=== PATIENT | female | born 1950 | race African-American/Black ===

== ENCOUNTER 2016-04-24 11:04 | Inpatient (IN) | payer OTHER ==
[~2016-04-24] VITALS: Ht 170.2 cm; Wt 104.8 kg
[2016-04-24] MEDS ORDERED: IV NORMAL SALINE 1000ML BAG 1,000 ML IV SCH (11:49)
[2016-04-24] MEDS ORDERED: FENTANYL PF 100 MCG/2 ML VIAL. IV PRN ×2 (12:00→14:00)
[2016-04-24] MEDS ORDERED: ONDANSETRON PF 4 MG/2 ML VIAL. IV ONE (12:00)
[2016-04-24] MEDS ORDERED: DIAZEPAM 10 MG/2 ML DISP.SYRIN. IV ONE (12:00)
[2016-04-24] MEDS ORDERED: ASPIRIN 81 MG TAB.CHEW PO ONE (12:00)
[2016-04-24 12:03] LABS: BASO % 1 % (0-3); EOS % 3 % (0-3); HEMATOCRIT 39.8 % (36.0-47.0); HEMOGLOBIN 13.6 g/dL (12.0-15.5); LYMPH # 3.3 x10^3/uL (1.0-4.8); LYMPH % 50 % (24-48); MEAN CORPUSCULAR HEMOGLOBIN 29 pg (25-35); MEAN CORPUSCULAR HGB CONC 34 g/dL (31-37); MEAN CORPUSCULAR VOLUME 84 fL (79-100); MONO % 7 % (0-9); NEUT % 40 % (31-73); PLATELET COUNT 170 x10^3/uL (140-400); RED BLOOD COUNT 4.73 x10^6/uL (3.50-5.40); RED CELL DISTRIBUTION WIDTH 13.9 % (11.5-14.5); WHITE BLOOD COUNT 6.7 x10^3/uL (4.0-11.0)
[2016-04-24 12:13] LABS: CALCIUM 9.7 mg/dL (8.5-10.1); CREATININE 0.8 mg/dL (0.6-1.0); GFR 87.4
--- NOTE | 2016-04-24 12:15 | EKG ---
[facility] [address] [place] [address] Test Date: 2016-04-24 Test Time: 11:14:22 Pat Name: BHAVNA MICHAEL Department: Room: Gender: Female Cook House Supervisor: : 1950 Requested By: JOSE ONEILL Order Number: [id number] Reading MD: Rashawn Rodriguez Measurements Intervals Ponder Rate: 69 P: 0 DC: 182 QRS: -22 QRSD: 98 T: 34 QT: 380 QTc: 409 Interpretive Statements SINUS RHYTHM Electronically Signed On 04-27-2016 10:20:02 ROOMING HOUSE INSPECTOR by Rashawn Rodriguez
[2016-04-24 12:19] LABS: ALBUMIN 3.8 g/dL (3.4-5.0); DIRECT BILIRUBIN 0.1 mg/dL (0.0-0.2); MAGNESIUM 1.8 mg/dL (1.8-2.4); TOTAL BILIRUBIN 0.8 mg/dL (0.2-1.0); TOTAL PROTEIN 7.9 g/dL (6.4-8.2)
[2016-04-24 12:26] LABS: CKMB INDEX 0.9 % (0-4); CKMB MASS 2.6 ng/mL (0.0-3.6)
--- NOTE | 2016-04-24 12:48 | RAD ---
Indication: Left shoulder pain. Time of exam 12 0 8:00 PM The glenohumeral and acromial clavicular alignment are normal. The acromiohumeral space is normal. There are hypertrophic degenerative changes of the AC joint. No fracture or dislocation is seen. Impression: No acute bony abnormality is detected.
--- NOTE | 2016-04-24 12:49 | RAD ---
Indication: Left-sided chest pain. Time of exam 1207 appear Comparison is made with prior chest from 05/26/2012. FINDINGS: The heart size is normal. The lungs are clear. No pleural effusion or pneumothorax is identified. The pulmonary vascularity is normal. IMPRESSION: No acute abnormality detected.
--- NOTE | 2016-04-24 13:36 | PHYS DOC ---
Past Medical History Past Medical History: Diabetes-Type II, Gallstones, Hypertension Past Surgical History: Other Additional Past Surgical Histo: d&c Alcohol Use: None Drug Use: None Adult General Chief Complaint Chief Complaint: CHEST PAIN HPI HPI Patient is a 66 year old female who presents with complaint of left-sided chest and shoulder pain. Patient states that she has had symptoms off and on for the past 2 weeks. Patient states that she has been having worsening pain in her left shoulder and states that the symptoms feel like muscle spasms. The patient also states that she has been having sharp pains in the middle of her chest. Patient has history of hypertension and diabetes mellitus type 2. Patient denies any known heart problems and states that she has not had any recent cardiac stress testing. Patient denies any fevers, nausea, or shortness of breath with her symptoms. Patient has been taking ibuprofen at home with no relief in symptoms. Review of Systems Review of Systems Constitutional: Denies fever or chills [] Eyes: Denies change in visual acuity, redness, or eye pain [] HENT: Denies nasal congestion or sore throat [] Respiratory: Denies cough or shortness of breath [] Cardiovascular: Chest pain, denies edema [] GI: Denies abdominal pain, nausea, vomiting, bloody stools or diarrhea [] : Denies dysuria or hematuria [] Musculoskeletal: Left shoulder pain [] Integument: Denies rash or skin lesions [] Neurologic: Denies headache, focal weakness or sensory changes [] Endocrine: Denies polyuria or polydipsia [] Current Medications Current Medications Current Medications Medications (Trade) Dose Ordered Sig/[facility] Start Time Stop Time Status Last Admin Dose Admin Aspirin (Children'S Aspirin) 324 mg 1X ONCE 04/24/16 12:00 04/24/16 12:01 DC 04/24/16 12:38 324 MG Diazepam (Valium) 5 mg 1X ONCE 04/24/16 12:00 04/24/16 12:01 DC 04/24/16 12:00 5 MG Fentanyl Citrate 50 mcg 50 mcg PRN Q15MIN PRN 04/24/16 12:00 04/25/16 11:59 Ondansetron HCl (Zofran) 4 mg 1X ONCE 04/24/16 12:00 04/24/16 12:01 DC 04/24/16 12:38 4 MG Sodium Chloride (Iv Sodium Chloride 0.9% 1000ml Bag) 1,000 ml @ 100 mls/hr Q10H 04/24/16 11:49 04/24/16 21:48 04/24/16 12:38 100 MLS/HR Allergies Allergies Allergies Coded Allergies Type Severity Reaction Last Updated Verified adhesive tape Allergy Unknown Rash 07/23/15 Yes lisinopril Adverse Reaction Intermediate BAD COUGH 07/23/15 Yes Physical Exam Physical Exam Constitutional: Alert, afebrile, appears in mild discomfort. [] HENT: Normocephalic, atraumatic, bilateral external ears normal, oropharynx moist, no oral exudates, nose normal. [] Eyes: PERRLA, EOMI, conjunctiva normal, no discharge. [] Neck: Normal range of motion, no tenderness, supple, no stridor. [] Cardiovascular:Heart rate regular rhythm, no murmur [] Lungs & Thorax: Bilateral breath sounds clear to auscultation [] Abdomen: Bowel sounds normal, soft, no tenderness, no masses, no pulsatile masses. [] Skin: Warm, dry, no erythema, no rash. [] Back: No tenderness, no CVA tenderness. [] Extremities: Left anterior and lateral shoulder tenderness to palpation, no cyanosis, no clubbing, ROM intact, no edema. [] Neurologic: Alert and oriented X 3, normal motor function, normal sensory function, no focal deficits noted. [] Current Patient Data Vital Signs Vital Signs Date Time Temp Pulse Resp B/P Pulse Ox O2 Delivery O2 Flow Rate FiO2 04/24/16 13:15 68 136/65 96 Room Air 04/24/16 12:46 18 04/24/16 11:05 97.7 97.7 Lab Values Laboratory Tests Test 04/24/16 11:20 White Blood Count 6.7x10^3/uL (4.0-11.0) Red Blood Count 4.73x10^6/uL (3.50-5.40) Hemoglobin 13.6g/dL (12.0-15.5) Hematocrit 39.8% (36.0-47.0) Mean Corpuscular Volume 84fL (79-100) Mean Corpuscular Hemoglobin 29pg (25-35) Mean Corpuscular Hemoglobin Concent 34g/dL (31-37) Red Cell Distribution Width 13.9% (11.5-14.5) Platelet Count 170x10^3/uL (140-400) Neutrophils (%) (Auto) 40% (31-73) Lymphocytes (%) (Auto) 50% (24-48) H Monocytes (%) (Auto) 7% (0-9) Eosinophils (%) (Auto) 3% (0-3) Basophils (%) (Auto) 1% (0-3) Neutrophils # (Auto) 2.7x10^3uL (1.8-7.7) Lymphocytes # (Auto) 3.3x10^3/uL (1.0-4.8) Monocytes # (Auto) 0.5x10^3/uL (0.0-1.1) Eosinophils # (Auto) 0.2x10^3/uL (0.0-0.7) Basophils # (Auto) 0.0x10^3/uL (0.0-0.2) Sodium Level 140mmol/L (136-145) Potassium Level 4.0mmol/L (3.5-5.1) Chloride Level 103mmol/L (98-107) Carbon Dioxide Level 29mmol/L (21-32) Anion Gap 8 (6-14) Blood Urea Nitrogen 17mg/dL (7-20) Creatinine 0.8mg/dL (0.6-1.0) Estimated GFR (Cockcroft-Gault) 87.4 Glucose Level 118mg/dL (70-99) H Calcium Level 9.7mg/dL (8.5-10.1) Magnesium Level 1.8mg/dL (1.8-2.4) Total Bilirubin 0.8mg/dL (0.2-1.0) Direct Bilirubin 0.1mg/dL (0.0-0.2) Aspartate Amino Transferase (AST) 37U/L (15-37) Alanine Aminotransferase (ALT) 47U/L (14-59) Alkaline Phosphatase 75U/L (46-116) Creatine Kinase 294U/L (26-192) H Creatine Kinase MB (Mass) 2.6ng/mL (0.0-3.6) Creatine Kinase MB Relative Index 0.9% (0-4) Troponin I Quantitative < 0.017ng/mL (0.000-0.055) QW-Rwl-W-Type Natriuretic Peptide 12pg/mL (0-124) Total Protein 7.9g/dL (6.4-8.2) Albumin 3.8g/dL (3.4-5.0) Thyroid Stimulating Hormone (TSH) 1.914uIU/mL (0.358-3.74) Laboratory Tests 04/24/16 11:20 Laboratory Tests 04/24/16 11:20 EKG EKG Interpreted by me: Heart rate 69, sinus rhythm, normal intervals, normal axis, no acute ST/T-wave abnormalities present [] Radiology/Procedures Radiology/Procedures [address] [address] IMAGING REPORT Signed PATIENT: BHAVNA MICHAEL ACCOUNT: [id number] : 1950 LOCATION: ER AGE: 66 SEX: F EXAM STATUS: PRE ER ORD. PHYSICIAN: JOSE ONEILL MD REASON: left-sided chest and shoulder pain PROCEDURE: SHOULDER 2+V LEFT Indication: Left shoulder pain. Time of exam 12 0 8:00 PM The glenohumeral and acromial clavicular alignment are normal. The acromiohumeral space is normal. There are hypertrophic degenerative changes of the AC joint. No fracture or dislocation is seen. Impression: No acute bony abnormality is detected. DICTATED and SIGNED BY: ALPHONSO SONG MD DATE: 04/24/16 1245 CC: JOSE ONEILL MD; NON,STAFF ~ [address] [address] IMAGING REPORT Signed PATIENT: BHAVNA MICHAEL ACCOUNT: [id number] : 1950 LOCATION: ER AGE: 66 SEX: F EXAM STATUS: PRE ER ORD. PHYSICIAN: JOSE ONEILL MD REASON: left-sided chest and shoulder pain PROCEDURE: PORTABLE CHEST 1V Indication: Left-sided chest pain. Time of exam 1207 appear Comparison is made with prior chest from 05/26/2012. FINDINGS: The heart size is normal. The lungs are clear. No pleural effusion or pneumothorax is identified. The pulmonary vascularity is normal. IMPRESSION: No acute abnormality detected. DICTATED and SIGNED BY: ALPHONSO SONG MD DATE: 04/24/16 1246 CC: JOSE ONEILL MD; NON,STAFF ~ [] Course & Med Decision Making Course & Med Decision Making Pertinent Labs and Imaging studies reviewed. (See chart for details) Patient was given IV Valium and oral aspirin in the emergency department. The patient states that her symptoms have mildly improved but are still present. Patient also states that she continues to have intermittent chest pains while in the emergency department. The patient will need admission to the hospital for rule out myocardial infarction. I spoke with Dr. Casas who accepted care patient in hospital. I also consult did [facility] cardiology and patient was initially evaluated in the emergency department with plans for stress test and echocardiogram in hospital. Dragon Disclaimer Dragon Disclaimer This electronic medical record was generated, in whole or in part, using a voice recognition dictation system. Departure Departure Impression: Primary Impression: Chest pain Additional Impressions: Type 2 diabetes mellitus Hypertension Disposition: ADMITTED INPATIENT Admitting Physician: Alisia Casas Condition: STABLE Referrals: PRICILA GARRIDO APRN (PCP) Problem Qualifiers Primary Impression: Chest pain Chest pain type: unspecified Qualified Code: R07.9 - Chest pain, unspecified Additional Impressions: Type 2 diabetes mellitus Diabetes mellitus complication status: with hyperglycemia Diabetes mellitus usp insulin use: unspecified usp insulin use status Qualified Code : E11.65 - Type 2 diabetes mellitus with hyperglycemia Hypertension Hypertension type: essential hypertension Qualified Code: I10 - Essential ( primary) hypertension JOSE ONEILL MD Apr 24, 2016 13:36
--- NOTE | 2016-04-24 13:57 | PDOC2 ---
HARVINDER CRAIG POST PRODUCTION ASSISTANT 04/24/16 1357: CARDIAC CONSULT DATE OF CONSULT Date of Consult DATE: 04/24/16 TIME: 13:44 REASON FOR CONSULT Reason for Consult: Chest pain REFERRING PHYSICIAN Referring Physician: Antwon SOURCE Source: Chart review, Patient HISTORY OF PRESENT ILLNESS HISTORY OF PRESENT ILLNESS This is a pleasant 66 yo female admitted for complains of chest pain. Reports that she has been having intermittent left chest pain in the last 2 weeks lasting only for a few minutes. In the last few days specifically this morning she started having more intense spasm like to her left chest and also mid chest pressure first one lasting about 30 minutes and the other one lasting about 15 minutes. This was not associated with nausea or vomiting nor heartburn but reports radiation to left shoulder with tingling to left and numbness to left hand. Could not tell me exactyl about diaphoresis but said she's sweaty a lot. She does get winded easily with walking but no SOA associated with her CP. Reports no palpitations. Her DM and HTN are controlled and also takes medications for it with compliance and also for HLP with daily ASA. Denies any prior cardiac workup, VTE, falls or any recent injury. Denies any chronic and routine NSAID use. PAST MEDICAL HISTORY Cardiovascular: HTN, Hyperlipidemia Pulmonary: No pertinent hx CENTRAL NERVOUS SYSTEM: Other (No pertinent history) GI: GERD Heme/Onc: No pertinent hx Hepatobiliary: Cholelithiasis Psych: No pertinent hx Musculoskeletal: Osteoarthritis Rheumatologic: No pertinent hx Infectious disease: No pertinent hx ENT: No pertinent hx Renal/: No pertinent hx Endocrine: Diabetes (2) Dermatology: No pertinent hx PAST SURGICAL HISTORY Past Surgical History: Other (D & C, colonoscopy) FAMILY HISTORY Family History: Heart Disease (mother with CHF) SOCIAL HISTORY Smoke: No ALCOHOL: none Drugs: None Lives: with Family CURRENT MEDICATIONS CURRENT MEDICATIONS Current Medications Medications (Trade) Dose Ordered Sig/[place] PRN Reason Start Time Stop Time Status Last Admin Dose Admin Aspirin (Children'S Aspirin) 324 mg 1X ONCE PO 04/24/16 12:00 04/24/16 12:01 DC 04/24/16 12:38 Ondansetron HCl (Zofran) 4 mg 1X ONCE IV 04/24/16 12:00 04/24/16 12:01 DC 04/24/16 12:38 ALLERGIES ALLERGIES: Coded Allergies: adhesive tape (Verified Allergy, Unknown, Rash, 4/26/16) PAPER TAPE OKAY lisinopril (Verified Adverse Reaction, Intermediate, BAD COUGH, 07/23/15) ROS Review of System 14 point ROS evaluated with pertinent positives noted per HPI PHYSICAL EXAM General: Alert, Oriented X3, Cooperative, No acute distress HEENT: Atraumatic, Mucous membr. moist/pink Lungs: Clear to auscultation, Normal air movement Heart: Regular rate, Normal S1, Normal S2, No murmurs Abdomen: Soft, No tenderness Extremities: No cyanosis, No edema Skin: No breakdown, No significant lesion Neuro: Normal speech, Sensation intact Psych/Mental Status: Mental status NL, Mood NL MUSCULOSKELETAL: Osteoarthritic changes both hands VITALS VITALS Vital Signs Date Time Temp Pulse Resp B/P Pulse Ox O2 Delivery O2 Flow Rate FiO2 04/24/16 12:46 67 18 131/63 96 Room Air 04/24/16 11:05 97.7 97.7 LABS Lab: Laboratory Tests Test 04/24/16 11:20 White Blood Count 6.7x10^3/uL (4.0-11.0) Red Blood Count 4.73x10^6/uL (3.50-5.40) Hemoglobin 13.6g/dL (12.0-15.5) Hematocrit 39.8% (36.0-47.0) Mean Corpuscular Volume 84fL (79-100) Mean Corpuscular Hemoglobin 29pg (25-35) Mean Corpuscular Hemoglobin Concent 34g/dL (31-37) Red Cell Distribution Width 13.9% (11.5-14.5) Platelet Count 170x10^3/uL (140-400) Neutrophils (%) (Auto) 40% (31-73) Lymphocytes (%) (Auto) 50% (24-48) Monocytes (%) (Auto) 7% (0-9) Eosinophils (%) (Auto) 3% (0-3) Basophils (%) (Auto) 1% (0-3) Neutrophils # (Auto) 2.7x10^3uL (1.8-7.7) Lymphocytes # (Auto) 3.3x10^3/uL (1.0-4.8) Monocytes # (Auto) 0.5x10^3/uL (0.0-1.1) Eosinophils # (Auto) 0.2x10^3/uL (0.0-0.7) Basophils # (Auto) 0.0x10^3/uL (0.0-0.2) Sodium Level 140mmol/L (136-145) Potassium Level 4.0mmol/L (3.5-5.1) Chloride Level 103mmol/L (98-107) Carbon Dioxide Level 29mmol/L (21-32) Anion Gap 8 (6-14) Blood Urea Nitrogen 17mg/dL (7-20) Creatinine 0.8mg/dL (0.6-1.0) Estimated GFR (Cockcroft-Gault) 87.4 Glucose Level 118mg/dL (70-99) Calcium Level 9.7mg/dL (8.5-10.1) Magnesium Level 1.8mg/dL (1.8-2.4) Total Bilirubin 0.8mg/dL (0.2-1.0) Direct Bilirubin 0.1mg/dL (0.0-0.2) Aspartate Amino Transf (AST/SGOT) 37U/L (15-37) Alanine Aminotransferase (ALT/SGPT) 47U/L (14-59) Alkaline Phosphatase 75U/L (46-116) Creatine Kinase 294U/L (26-192) Creatine Kinase MB (Mass) 2.6ng/mL (0.0-3.6) Creatine Kinase MB Relative Index 0.9% (0-4) Troponin I Quantitative < 0.017ng/mL (0.000-0.055) WJ-Tdy-T-Type Natriuretic Peptide 12pg/mL (0-124) Total Protein 7.9g/dL (6.4-8.2) Albumin 3.8g/dL (3.4-5.0) ASSESSMENT/PLAN ASSESSMENT/PLAN 1. Chest pain: Initial troponin normal, continue with series. EKG SR without acute changes. Significant cardiac risk factors. Suspect GB disease. No prior cardiac workup, will completely rule out ischemia. TTE today and MPI tomorrow. continue with ECASA. 2. HTN: controlled. Continue with losratan 50 mf and HCTZ 12.5 mg once placed in EMR. 3. HLP: on pravastatin 10 mg daily. CK mildly elevated. Continue. lipid panel. TSH. 4. DM2: on metformin. BG controlled per home diary. 5. Obesity with known DUMONT 6. Cholelithiasis: noted via imaging several months ago 2016 per pt, but something wrong with insurance not covering operation. Problems: GIOVANI GOMEZ MD 04/24/16 1657: CARDIAC CONSULT ALLERGIES ALLERGIES: Coded Allergies: adhesive tape (Verified Allergy, Unknown, Rash, 07/23/15) PAPER TAPE OKAY lisinopril (Verified Adverse Reaction, Intermediate, BAD COUGH, 07/23/15) ASSESSMENT/PLAN ASSESSMENT/PLAN Patient seen and examined. Agree with SR. PAYROLL PROCESSOR's assessment and plan. CP with atypical features. CE negative so far and EKG without acute changes. Plan for echo to rule out WMA and MPI to rule out ischemia. Thank you for your consultation. Problems: HARVINDER CRAIG APRN Apr 24, 2016 13:57 GIOVANI GOMEZ MD Apr 24, 2016 16:57
[2016-04-24] MEDS ORDERED: DEXTROSE 50% 25 GM / 50ML DISP.SYRIN. IV PRN (14:00)
[2016-04-24] MEDS ORDERED: ZOLPIDEM 5 MG TABLET. PO PRN (14:00)
[2016-04-24] MEDS ORDERED: ACETAMINOPHEN 325 MG TABLET. PO PRN (14:00)
[2016-04-24] MEDS ORDERED: ONDANSETRON PF 4 MG/2 ML VIAL. IV PRN ×2 (14:00→14:02)
[2016-04-24] MEDS ORDERED: ACETAMINOPHEN 500 MG TABLET PO PRN (14:15)
--- NOTE | 2016-04-24 14:33 | PDOC1 ---
History and Physical Date of Admission Date of Admission DATE: 04/24/16 TIME: 14:28 Identification/Chief Complaint Chief Complaint left sided arm pain and chest heaviness Source Source: Caregiver, Chart review, Patient History of Present Illness History of Present Illness 66 y/o female with hx DM and HTN on OHA, works detention comes in for r.o ACS, Started to have left arm pain, some tingling? accompanied by heavy pressure sensation to chest, no diaphoresis, no SOA> LAst ed maybe 30 mins, waxes and wanes, then lasted 15 mins, Never had a cardiac work up before, never had prior sxs before. Happened at work, no known precipitating or alleviating factors, "radiation maybe to the left arm" as decribed above Past Medical History Cardiovascular: HTN, Hyperlipidemia Pulmonary: No pertinent hx CENTRAL NERVOUS SYSTEM: Other (No pertinent history) GI: GERD Heme/Onc: No pertinent hx Hepatobiliary: Cholelithiasis Psych: No pertinent hx Musculoskeletal: Osteoarthritis Rheumatologic: No pertinent hx Infectious disease: No pertinent hx ENT: No pertinent hx Renal/: No pertinent hx Endocrine: Diabetes (2) Dermatology: No pertinent hx Past Surgical History Past Surgical History: Other (D & C, colonoscopy) Family History Family History: Heart Disease (mother with CHF) Social History Smoke: No ALCOHOL: none Drugs: None Current Problem List Problem List Problems Medical Problems: (1) Chest pain Status: Acute Problems: Current Medications Current Medications Current Medications Aspirin (Children'S Aspirin) 324 mg 1X ONCE PO Last administered on 04/24/16 12:38; Start 04/24/16 at 12:00; Stop 04/24/16 at 12:01; Status DC Fentanyl Citrate 50 mcg 50 mcg PRN Q15MIN PRN IV PAIN GREATER THAN 3/10; Start 04/24/16 at 12:00; Stop 04/25/16 at 11:59 Sodium Chloride (Iv Sodium Chloride 0.9% 1000ml Bag) 1,000 ml @ 100 mls/hr Q10H IV ; Start 04/24/16 at 11:49; Stop 04/24/16 at 21:48 Diazepam (Valium) 5 mg 1X ONCE IV ; Start 04/24/16 at 12:00; Stop 04/24/16 at 12:01; Status DC Ondansetron HCl (Zofran) 4 mg 1X ONCE IV Last administered on 04/24/16t 12:38 ; Start 04/24/16 at 12:00; Stop 04/24/16 at 12:01; Status DC Ondansetron HCl (Zofran) 4 mg PRN Q8HRS PRN IV NAUSEA/VOMITING; Start 04/24/16 at 14:00; Stop 04/24/16 at 14:03; Status DC Fentanyl Citrate (Fentanyl 2ml Vial) 50 mcg PRN Q2HR PRN IV PAIN; Start at 14:00; Stop 04/25/16 at 13:59 Acetaminophen (Tylenol) 650 mg PRN Q4HRS PRN PO FEVER; Start 04/24/16 at 14:00 ; Stop 04/25/16 at 13:59 Insulin Aspart (Novolog) 0-9 UNITS TIDWMEALS SQ ; Start 04/24/16 at 17:00 Dextrose 12.5 gm PRN Q15MIN PRN IV SEE COMMENTS; Start 04/24/16 at 14:00 Simvastatin (Zocor) 10 mg QHS PO ; Start 04/24/16 at 21:00 Aspirin (Children'S Aspirin) 81 mg DAILY PO ; Start 04/25/16 at 09:00 Ferrous Sulfate (Feosol) 325 mg DAILYWBKFT PO ; Start 04/25/16 at 08:00 Losartan Potassium (Cozaar) 50 mg DAILY PO ; Start 04/24/16 at 15:00 Hydrochlorothiazide (Microzide) 12.5 mg DAILY PO ; Start 04/24/16 at 15:00 Zolpidem Tartrate (Ambien) 5 mg PRN QHS PRN PO INSOMNIA; Start 04/24/16 at 14: 00 Ondansetron HCl (Zofran) 4 mg PRN Q6HRS PRN IV NAUSEA/VOMITING; Start 04/24/16 at 14:02 Acetaminophen (Tylenol) 500 mg PRN QID PRN PO pain; Start 04/24/16 at 14:15 Allergies Allergies: Coded Allergies: adhesive tape (Verified Allergy, Unknown, Rash, 07/23/15) PAPER TAPE OKAY lisinopril (Verified Adverse Reaction, Intermediate, BAD COUGH, 07/23/15) ROS General: No: Appetite, Chills, Fatigue, Malaise, Night Sweats, Other PSYCHOLOGICAL ROS: No: Anxiety, Behavioral Disorder, Concentration difficultie , Decreased libido, Depression, Disorientation, Hallucinations, Hostility, Irritablity, Memory difficulties, Mood Swings, Obsessive thoughts, Other, Physical abuse, Sexual abuse, Sleep disturbances, Suicidal ideation Eyes: No Blurry vision, No Decreased vision, No Double vision, No Dry eyes, No Excessive tearing, No Eye Pain, No Itchy Eyes, No Loss of vision, No Other, No Photophobia, No Scotomata, No Uses contacts, No Uses glasses HEENT: No: Epistaxis, Heacaches, Hearing change, Nasal congestion, Nasal discharge, Oral lesions, Other, Sinus pain, Sneezing, Snoring, Sore Throat, Tinnitus, Vertigo, Visual Changes, Vocal changes ALLERGY AND IMMUNOLOGY: No: Hives, Insect Bite Sensitivity, Itchy/Watery Eyes, Nasal Congestion, Other, Post Nasal Drip, Seasonal Allergies Hematological and Lymphatic: No: Bleeding Problems, Blood Clots, Blood Transfusions, Brusing, Night Sweats, Other, Pallor, Swollen Lymph Nodes ENDOCRINE: No: Breast Changes, Galactorrhea, Hair Pattern Changes, Hot Flashes , Malaise/lethargy, Mood Swings, Other, Palpitations, Polydipsia/polyuria, Skin Changes, Temperature Intolerance, Unexpected Weight Changes Breast: No New/Changing Breast Lumps, No Nipple changes, No Nipple discharge, No Other Respiratory: No: Cough, Hemoptysis, Orthopnea, Other, Pleuritic Pain, SOB with excertion, Shortness of breath, Sputum Changes, Stridor, Tachypnea, Wheezing Cardiovascular: yes Chest Pain Gastrointestinal: No Abdominal Pain, No Constipation, No Diarrhea, No Hematochezia, No Melena, No Nausea, No Other, No Vomiting Genitourinary: No , No , No , No , No , No , No , No Discharge, No Dysuria, No Flank Pain, No Frequency, No Hematuria, No Incontinence, No Other, No Pain, No Retention, No Urgency Musculoskeletal: Yes Pain In: (left arm) Neurological: No Behavorial Changes, No Bowel/Bladder ControlChng, No Confusion , No Dizziness, No Gait Disturbance, No Headaches, No Impaired Coord/balance, No Memory Loss, No Numbness/Tingling, No Other, No Seizures, No Speech Problems , No Tremors, No Visual Changes, No Weakness Skin: No Acne, No Dry Skin, No Eczema, No Hair Changes, No Lumps, No Mole Changes, No Mottling, No Nail Changes, No Other, No Pruritus, No Rash, No Skin Lesion Changes Physical Exam General: Alert, Oriented X3, Cooperative, No acute distress HEENT: Atraumatic, PERRLA Lungs: Clear to auscultation Heart: S1S2, RRR, no thrills, no rubs Cardiovascular: S1, S2 Breasts: Normal, Rt breast nml w/o mass, Lt breast nml w/o mass, Nipples normal Abdomen: Normal bowel sounds, Soft, No tenderness, No hepatosplenomegaly, No masses Rectal Exam: not examined, mass PELVIC: Nml ext genitalia Extremities: No clubbing, No cyanosis, No edema, Normal pulses, No tenderness/ swelling Skin: No rashes, No breakdown, No significant lesion Neuro: Normal gait, Normal speech, Strength at 5/5 X4 ext, Normal tone, Sensation intact, Cranial nerves 3-12 NL, Reflexes 2+ Psych/Mental Status: Mental status NL, Mood NL Vitals Vitals Vital Signs Date Time Temp Pulse Resp B/P Pulse Ox O2 Delivery O2 Flow Rate FiO2 04/24/16 12:46 67 18 131/63 96 Room Air 04/24/16 11:05 97.7 97.7 Labs Labs Laboratory Tests Test 04/24/16 11:20 White Blood Count 6.7x10^3/uL (4.0-11.0) Red Blood Count 4.73x10^6/uL (3.50-5.40) Hemoglobin 13.6g/dL (12.0-15.5) Hematocrit 39.8% (36.0-47.0) Mean Corpuscular Volume 84fL (79-100) Mean Corpuscular Hemoglobin 29pg (25-35) Mean Corpuscular Hemoglobin Concent 34g/dL (31-37) Red Cell Distribution Width 13.9% (11.5-14.5) Platelet Count 170x10^3/uL (140-400) Neutrophils (%) (Auto) 40% (31-73) Lymphocytes (%) (Auto) 50% (24-48) Monocytes (%) (Auto) 7% (0-9) Eosinophils (%) (Auto) 3% (0-3) Basophils (%) (Auto) 1% (0-3) Neutrophils # (Auto) 2.7x10^3uL (1.8-7.7) Lymphocytes # (Auto) 3.3x10^3/uL (1.0-4.8) Monocytes # (Auto) 0.5x10^3/uL (0.0-1.1) Eosinophils # (Auto) 0.2x10^3/uL (0.0-0.7) Basophils # (Auto) 0.0x10^3/uL (0.0-0.2) Sodium Level 140mmol/L (136-145) Potassium Level 4.0mmol/L (3.5-5.1) Chloride Level 103mmol/L (98-107) Carbon Dioxide Level 29mmol/L (21-32) Anion Gap 8 (6-14) Blood Urea Nitrogen 17mg/dL (7-20) Creatinine 0.8mg/dL (0.6-1.0) Estimated GFR (Cockcroft-Gault) 87.4 Glucose Level 118mg/dL (70-99) Calcium Level 9.7mg/dL (8.5-10.1) Magnesium Level 1.8mg/dL (1.8-2.4) Total Bilirubin 0.8mg/dL (0.2-1.0) Direct Bilirubin 0.1mg/dL (0.0-0.2) Aspartate Amino Transf (AST/SGOT) 37U/L (15-37) Alanine Aminotransferase (ALT/SGPT) 47U/L (14-59) Alkaline Phosphatase 75U/L (46-116) Creatine Kinase 294U/L (26-192) Creatine Kinase MB (Mass) 2.6ng/mL (0.0-3.6) Creatine Kinase MB Relative Index 0.9% (0-4) Troponin I Quantitative < 0.017ng/mL (0.000-0.055) KN-Jjp-I-Type Natriuretic Peptide 12pg/mL (0-124) Total Protein 7.9g/dL (6.4-8.2) Albumin 3.8g/dL (3.4-5.0) Laboratory Tests Test 04/24/16 11:20 White Blood Count 6.7x10^3/uL (4.0-11.0) Red Blood Count 4.73x10^6/uL (3.50-5.40) Hemoglobin 13.6g/dL (12.0-15.5) Hematocrit 39.8% (36.0-47.0) Mean Corpuscular Volume 84fL (79-100) Mean Corpuscular Hemoglobin 29pg (25-35) Mean Corpuscular Hemoglobin Concent 34g/dL (31-37) Red Cell Distribution Width 13.9% (11.5-14.5) Platelet Count 170x10^3/uL (140-400) Neutrophils (%) (Auto) 40% (31-73) Lymphocytes (%) (Auto) 50% (24-48) Monocytes (%) (Auto) 7% (0-9) Eosinophils (%) (Auto) 3% (0-3) Basophils (%) (Auto) 1% (0-3) Neutrophils # (Auto) 2.7x10^3uL (1.8-7.7) Lymphocytes # (Auto) 3.3x10^3/uL (1.0-4.8) Monocytes # (Auto) 0.5x10^3/uL (0.0-1.1) Eosinophils # (Auto) 0.2x10^3/uL (0.0-0.7) Basophils # (Auto) 0.0x10^3/uL (0.0-0.2) Sodium Level 140mmol/L (136-145) Potassium Level 4.0mmol/L (3.5-5.1) Chloride Level 103mmol/L (98-107) Carbon Dioxide Level 29mmol/L (21-32) Anion Gap 8 (6-14) Blood Urea Nitrogen 17mg/dL (7-20) Creatinine 0.8mg/dL (0.6-1.0) Estimated GFR (Cockcroft-Gault) 87.4 Glucose Level 118mg/dL (70-99) Calcium Level 9.7mg/dL (8.5-10.1) Magnesium Level 1.8mg/dL (1.8-2.4) Total Bilirubin 0.8mg/dL (0.2-1.0) Direct Bilirubin 0.1mg/dL (0.0-0.2) Aspartate Amino Transf (AST/SGOT) 37U/L (15-37) Alanine Aminotransferase (ALT/SGPT) 47U/L (14-59) Alkaline Phosphatase 75U/L (46-116) Creatine Kinase 294U/L (26-192) Creatine Kinase MB (Mass) 2.6ng/mL (0.0-3.6) Creatine Kinase MB Relative Index 0.9% (0-4) Troponin I Quantitative < 0.017ng/mL (0.000-0.055) QE-Vdc-W-Type Natriuretic Peptide 12pg/mL (0-124) Total Protein 7.9g/dL (6.4-8.2) Albumin 3.8g/dL (3.4-5.0) VTE Prophylaxis Ordered VTE Prophylaxis Devices: Yes VTE Pharmacological Prophylaxi: Yes Assessment/Plan Assessment/Plan 1. CHest heaviness, atypical CP in an adult 2. Left arm pain 3. DM on OHA 4. HTN 5. Obesity PLAN: Cycle CE Echo and mPI Resume home meds MAy hold metformin SSi NPO for cardiac test Dw pt Seen at ER OBS NOAM BARAJAS MD Apr 24, 2016 14:33
[2016-04-24] MEDS: HYDROCHLOROTHIAZIDE 12.5 MG CAPSULE. PO SCH (15:00)
[2016-04-24] MEDS: LOSARTAN POTASSIUM 50 MG TABLET. PO SCH (15:00)
[2016-04-24] MEDS: INSULIN ASPART 300 UNITS/3 ML INSULN.PEN SQ SCH (17:00)
--- NOTE | 2016-04-24 17:06 | CARD ---
APPROVED REPORT EXAM: Two-dimensional and M-mode echocardiogram with Doppler and color Doppler. Other Information Quality : Good INDICATION Chest Pain 2D DIMENSIONS RVDd2.5 (2.9-3.5cm)Left Atrium(2D)3.9 (1.6-4.0cm) IVSd1.3 (0.7-1.1cm)Aortic Root(2D)2.5 (2.0-3.7cm) LVDd4.3 (3.9-5.9cm)LVOT Diameter2.0 (1.8-2.4cm) PWd1.1 (0.7-1.1cm)LVDs2.5 (2.5-4.0cm) FS (%) 30.0 %SV63.2 ml LVEF(%)60.0 (>50%) Aortic Valve AoV Peak Pacheco.123.9cm/sAoV VTI28.3cm AO Peak GR.6.1mmHgLVOT Peak Pacheco.103.2cm/s LVOT VTI 22.99cmAO Mean GR.3mmHg ALLA (VMAX)2.75wu7VCD (VTI)2.52cm2 Mitral Valve MV E Xgqqdqzx59.8cm/sMV DECEL HMUT519nd MV A Rbbplzrp200.2cm/sMV ASU38vo E/A Ratio0.7MVA (PHT)2.54cm2 TDI E/Lateral E'7.3E/Medial E'11.8 Tricuspid Valve TR P. Bbvmeggy210yj/sRAP [id number] TR Peak Gr.94hkArQBIO24zoQf Pulmonary Vein S1 Uyenfllw04.5cm/sD2 Jujlapgt61.8cm/s PVa lixdorpg170thxv LEFT VENTRICLE The left ventricle is normal size. There is mild concentric left ventricular hypertrophy. The left ve ntricular systolic function is normal. The Ejection Fraction is 55-60%. There is normal LV segmental wall motion. Transmitral Doppler flow pattern is Grade I-abnormal relaxation pattern. RIGHT VENTRICLE The right ventricle is normal size. The right ventricular systolic function is normal. ATRIA The left atrium size is normal. The right atrium size is normal. The interatrial septum is intact wit h no evidence for an atrial septal defect or patent foramen ovale as noted on 2-D or Doppler imaging. AORTIC VALVE The aortic valve is calcified but opens well. Doppler and Color Flow revealed no significant aortic r egurgitation. There is no significant aortic valvular stenosis. MITRAL VALVE The mitral valve is calcified but opens well. There is no evidence of mitral valve prolapse. There is no mitral valve stenosis. Doppler and Color-flow revealed mild mitral regurgitation. TRICUSPID VALVE The tricuspid valve is normal in structure and function. Doppler and Color Flow revealed mild tricusp id regurgitation. There is mild pulmonary hypertension. The PA pressure was estimated at 34 mmHg. The re is no tricuspid valve stenosis. PULMONIC VALVE The pulmonary valve is normal in structure and function. Doppler and Color Flow revealed trace pulmon ic valvular regurgitation. There is no pulmonic valvular stenosis. GREAT VESSELS The aortic root is normal in size. The ascending aorta is normal in size. The IVC is normal in size a nd collapses >50% with inspiration. PERICARDIAL EFFUSION There is no evidence of significant pericardial effusion. Critical Notification Critical Value: No <Conclusion> The left ventricular systolic function is normal. The Ejection Fraction is 55-60%. There is normal LV segmental wall motion. Transmitral Doppler flow pattern is Grade I-abnormal relaxation pattern. Mild mitral regurgitation. Mild tricuspid regurgitation. There is mild pulmonary hypertension. The PA pressure was estimated at 34 mmHg. There is no evidence of significant pericardial effusion.
[2016-04-24] MEDS ORDERED: hydrALAZINE 20 MG/ML VIAL. IVP PRN (18:30)
[2016-04-24 19:00] VITALS: BP 181/73
[2016-04-24] MEDS ORDERED: PRAV10TA2 PO (19:27)
[2016-04-24] MEDS ORDERED: ASPI81TA2 PO (19:27)
[2016-04-24] MEDS ORDERED: AMLO10TA2 PO (19:27)
[2016-04-24] MEDS ORDERED: LOSA1TAB16 PO (19:27)
[2016-04-24] MEDS ORDERED: METF500T4 PO (19:27)
[2016-04-24] MEDS ORDERED: SIMVASTATIN 10 MG TABLET PO SCH (21:00)
[2016-04-24 23:00] VITALS: BP 117/53
[2016-04-25 06:24] LABS: BASO % 0 % (0-3); EOS % 4 % (0-3); HEMATOCRIT 37.8 % (36.0-47.0); HEMOGLOBIN 12.4 g/dL (12.0-15.5); LYMPH # 2.8 x10^3/uL (1.0-4.8); LYMPH % 51 % (24-48); MEAN CORPUSCULAR HEMOGLOBIN 29 pg (25-35); MEAN CORPUSCULAR HGB CONC 33 g/dL (31-37); MEAN CORPUSCULAR VOLUME 87 fL (79-100); MONO % 8 % (0-9); NEUT % 37 % (31-73); PLATELET COUNT 137 x10^3/uL (140-400); RED BLOOD COUNT 4.32 x10^6/uL (3.50-5.40); RED CELL DISTRIBUTION WIDTH 13.8 % (11.5-14.5); WHITE BLOOD COUNT 5.5 x10^3/uL (4.0-11.0)
[2016-04-25 06:51] LABS: CALCIUM 8.9 mg/dL (8.5-10.1); CREATININE 0.7 mg/dL (0.6-1.0); GFR 101.9; POTASSIUM 3.7 mmol/L (3.5-5.1)
[2016-04-25 07:05] LABS: CHOLESTEROL/HDL RATIO 2.4
[2016-04-25 07:30] VITALS: BP 101/50
[2016-04-25] MEDS: INSULIN ASPART 300 UNITS/3 ML INSULN.PEN SQ SCH ×2 (07:43→11:41)
[2016-04-25] MEDS ORDERED: FERROUS SULFATE 325 MG TABLET PO SCH (08:00)
[2016-04-25] MEDS ORDERED: ASPIRIN 81 MG TAB.CHEW PO SCH (09:00)
[2016-04-25] MEDS ORDERED: REGADENOSON 0.4 MG/5 ML DISP.SYRIN. IV ONE (09:15)
[2016-04-25 11:20] VITALS: BP 126/61
[2016-04-25] MEDS: HYDROCHLOROTHIAZIDE 12.5 MG CAPSULE. PO SCH (11:37)
[2016-04-25] MEDS: LOSARTAN POTASSIUM 50 MG TABLET. PO SCH (11:38)
--- NOTE | 2016-04-25 11:46 | RAD ---
APPROVED REPORT Test Type: Pharmacological Stress Nurse/Tech: Courtney Patel RN Test Indications: Chest Pain Cardiac History: see ehr Medications: see ehr Medical History: see ehr Resting ECG: SR Resting Heart Rate: 57 bpm Resting Blood Pressure: 138/63mmHg Pretest Chest Pain: None Nurse/Tech Notes Lungs CTA, S1, S2 Consent: The procedure was explained to the patient in lay terms. Informed consent was witnessed. Morales eout was entered into [employer] ([employer]). History and Stress Test performed by Jean [facility]uan [facility]. Details Pharmacologic stress testing was performed using 0.4mg per 5ml of regadenoson given intravenously ove r 7-10 seconds. Stress Symptoms No chest pain or symptoms. POST EXERCISE Reason for Termination: Infusion complete Max HR: 97 bpm Max Blood Pressure: 140/64mmHg Blood Pressure response to exercise: Normal blood pressure response during stress. Chest Pain: No. Arrhythmia: No. ST Change: No. INTERPRETATION Stress EKG Conclusion: Baseline EKG showed sinus rhythm. No ischemic changes at peak stress. No arr hythmias. Imaging Protocol IMAGE PROTOCOL: Rest Tc-99m/stress Tc-99m 1 day Rest: Stress: Viability: Radiopharm.Tc99m VezsqphbkRt57b Sestamibi Uxib52oGn 35mCi Img Date 04/25/2016 04/25/2016 Inj-Img Yxbh61iov. 45min. Rest Admin Site:IV - Right HandAdministrator:ESA Michelle, ARRT (R)(N) Stress Admin Site: IV - Right HandAdministrator: ESA Michelle, ARRT (R)(N) STRESS DATA End Diast. Vol.91.0mlAv. Heart Rate67.0bpm End Syst. Vol.23.0mlCO Index BSA0.0L/min Myocardial Gius093.0gEject. Zvfmjopk31.0% Stress Rates Pk. Fill Rate2.84EDV/secLVtime Pk. Fill 255.29msec Pk. Empty Rate3.94ESV/secLVtime Pk. Gerto816.13msec 03/31 Pk. Fill1.36EDV/sec Stress Scores Regional WT0.00Summed WT1.00 Regional WM0.00Summed WM1.00 Study quality was good. Left Ventricular size was Normal at Rest and Stress. Lung uptake was Normal. Left Ventricular ejection fraction is 75%. The rest and stress images show normal perfusion, normal contraction and thickening. LV Perf. Quant 17 Seg. SSS0.00 17 Seg. SRS4.00 17 Seg. SDS0.00 Stress Defect Extent (% LAD)0.00Rest Defect Extent (% LAD)6.30Rev. Defect Extent (% LAD)0.00 Stress Defect Extent (% LCX) 0.00Rest Defect Extent (% LCX)0.00Rev. Defect Extent (% LCX)0.00 Stress Defect Extent (% RCA)0.00Rest Defect Extent (% RCA)0.00Rev. Defect Extent (% RCA)0.00 Stress Defect Extent (% ROSALIND)0.00Rest Defect Extent (% ROSALIND)2.60Rev. Defect Extent (% ROSALIND)0.00 Conclusion 1. Regadenoson cardioisotope stress test did not show any evidence of ischemia or infarct. 2. Normal left ventricular systolic function with ejection fraction calculated at 75%. 3. Low risk for cardiac events.
[2016-04-25 14:30] VITALS: BP 129/66
[2016-04-25] MEDS ORDERED: CYCL5TAB PO (16:05)
[2016-04-25] MEDS ORDERED: PANT40TA3 PO (16:05)
--- NOTE | 2016-04-26 01:17 | DS ---
DATE OF DISCHARGE: 04/25/2016 DISCHARGE DIAGNOSES: Atypical chest pain, unclear etiology, likely gastritis versus GERD. BRIEF HOSPITAL COURSE: A 66-year-old female patient with prior history of hypertension, diabetes, presented to the ER with complaints of left-sided chest pain. She described it as left upper extremity spasms, coming and going. Given her history of comorbid condition, she was admitted and 3 sets of troponins were negative and also the patient underwent a nuclear stress test which is negative for any coronary ischemia. Also, she had an echocardiogram which showed normal LV ejection fraction. During hospitalization, the patient was seen by Cardiology and no further in-hospital workup is needed. The patient is advised to see family doctor to continue to work her up for further investigations. DISCHARGE EXAMINATION: GENERAL: Alert, oriented x 3. HEART: S1, S2 present. LUNGS: Clear to auscultation. ABDOMEN: Soft, nontender, no organomegaly. EXTREMITIES: No edema and pulses equal in all extremities. DISCHARGE DISPOSITION: Home. DISCHARGE CONDITION: Stable. MEDICATIONS: Continue current home medications. Medications reviewed and reconciled. FOLLOWUP: With primary care doctor for further investigations for chest pain. Total time spent for discharge is 31 minutes for patient education, counseling and coordination of care. ADELA OLIVER MD DR: KENYA/davey JOB#: [id number] / [id number]
== END 2016-04-25 16:54 | disposition home or self-care (01) | DRG 392 ==
LOC: ER 11:04 → 5 NORTH 13:26
PROVIDERS: ADMIT Internal Medicine; ATTEND Internal Medicine
DX: K29.70 Gastritis, unspecified, without bleeding (principal); K21.9 Gastro-esophageal reflux disease without esophagitis; E11.9 Type 2 diabetes mellitus without complications; I10 Essential (primary) hypertension; E78.5 Hyperlipidemia, unspecified; E66.9 Obesity, unspecified; Z68.36 Body mass index [BMI] 36.0-36.9, adult; Z82.49 Family history of ischemic heart disease and other diseases of the circulatory system; Z88.8 Allergy status to other drugs, medicaments and biological substances; Z91.048 Other nonmedicinal substance allergy status
CPT/HCPCS: 36415; 71010; 73030; 78452; 80048; 80061; 80076; 82553; 82947; 83735; 83880; 84443; 84484; 85027; 93005; 93017; 93306; 96361; 96374; 96375; 96376; A9500; J2405; J2785; J3360; J7030; 99285-25